=== PATIENT | male | born 1970 | race Caucasian/White ===

== ENCOUNTER 2017-05-14 09:23 | Day surgery (SDC) | payer OTHER ==
--- NOTE | 2017-05-13 17:23 | HISTORY AND PHYSICAL E ---
History and Physical NAME: JUAN F JOHNSON : 1970 AGE: 47Y ADMITTED: 05/14/2017 ROOM: CHIEF COMPLAINT/HISTORY: Diarrhea, changed bowel habits, abdominal pain, Crohn's. Diarrhea more frequent after eating, related to food intake, 3-5 times per day. He denied nighttime diarrhea. PAST SURGICAL HISTORY: 1. Appendectomy. 2. Rhinoplasty. 3. Right ankle. 4. surgery. 5. Epiglottis surgery. 6. Colonoscopy, 2006. MEDICATIONS: 1. Ambien. 2. Baby aspirin. SOCIAL HISTORY: Patient is . He smokes tobacco. He drinks at times. FAMILY HISTORY: Father is , history unknown. Mom is alive, has history of heart and gallbladder disease. He does have a maternal grandfather with colon malignancy. His uncle has rectal malignancy. REVIEW OF SYSTEMS: HEAD, EYES, EARS, NOSE, THROAT: Deviated septum, eye-glasses, ringing in the ears. RESPIRATORY: Sleep apnea. CPAP. CARDIAC: Negative. ENDOCRINE: Negative. GASTROINTESTINAL: Changed bowel habits, abdominal pain, and diarrhea. PSYCHIATRIC: PTSD. PHYSICAL EXAMINATION: GENERAL: Pleasant, alert, oriented, 48. VITAL SIGNS: Weight 220. Blood pressure 130/90, pulse 80, respirations 18, temp is 98. HEAD, EYES, EARS, NOSE, THROAT: Normal. NECK: Supple. CARDIOVASCULAR: Normal. LUNGS: Clear. ABDOMEN: Soft. NEUROLOGIC: Exam negative. CONCLUSION: 1. Changed bowel habits, diarrhea. 2. Abdominal pain. 3. IBS. PLAN: Colonoscopy. Admit 05/14. DICTATING PHYSICIAN: DANIEL BROWN M.D. [id number] [id number] PHY#: [id number] ID: [id number] JOB#: [id number] ACCT: [id number] cc:[facility], DANIEL BROWN M.D. >
[~2017-05-14 09:23] MED LIST: LIDOCAINE 2% JELLY 30 ML TUBE ONE; ONDANSETRON HCL INJ/PF 4 MG/2 ML SDV ONE
[2017-05-14] MEDS ORDERED: GLYCOPYRROLATE INJ 0.4 MG/2 ML VIAL ONE (09:24)
[2017-05-14] MEDS ORDERED: NALOXONE HCL INJ/PF 0.4 MG/1 ML SDV ONE (09:24)
[2017-05-14] MEDS ORDERED: FLUMAZENIL INJ 0.5 MG/5 ML VIAL IV ONE (09:24)
[2017-05-14] MEDS ORDERED: GLUCAGON,HUMAN RECOMB 1 MG INJ ONE (09:25)
[2017-05-14] MEDS ORDERED: EPINEPHRINE INJ 1 MG/10 ML DISP.SYRIN ONE (09:25)
[2017-05-14] MEDS: MIDAZOLAM 2 MG/2 ML INJ ONE ×3 (10:34→10:42)
[2017-05-14] MEDS: FENTANYL CITRATE INJ/PF 100 MCG/2 ML AMPUL ONE ×2 (10:36→10:40)
--- NOTE | 2017-05-14 11:16 | OPERATIVE REPORT E ---
Operative Report NAME: JUAN F JOHNSON : 1970 AGE: 47Y DATE OF SURGERY: ROOM: PREOPERATIVE DIAGNOSIS: The patient is a 47-year-old male with diarrhea. POSTOPERATIVE DIAGNOSIS: Diarrhea. OPERATION: Colonoscopy. SURGEON: DANIEL BROWN M.D. ANESTHESIA: Versed 4, fentanyl 100. TISSUE REMOVED OR ALTERED: Biopsy, right colon. Consider collagenous colitis, microscopic colitis. PROCEDURE: Rectal exam shows firm prostate, otherwise negative. Rectal mucosa normal. Sigmoid, descending colon normal. Transverse colon, normal. Ascending colon, normal. Cecum was coated with a large amount of liquid stool. With lavage flushing I was able to see the cecum. I did not see any gross abnormalities. Scope withdrawn from cecum after biopsy obtained. Right colon and cecum biopsy for collagenous colitis. Cecum, ascending colon essentially normal. Inadequate prep. Transverse colon normal; descending, sigmoid all the way to the rectum. CONCLUSION: Firm prostate. Awaiting lab testing. No evidence of polyps, no evidence of malignancy. Because the prep is inadequate, but I reached the cecum, the patient may need to have followup colonoscopy after 1 to 2 years with better prep. DICTATING PHYSICIAN: DANIEL BROWN M.D. [id number] [id number] PHY#: [id number] ID: [id number] JOB#: [id number] ACCT: [id number] cc:[facility], DANIEL BROWN M.D. >
[2017-05-14 12:04] VITALS: BP 124/73
[2017-05-14 12:11] LABS: ABSOLUTE BASOPHILS # (AUTO) 0.1 10^3/uL (0.0-0.2); ABSOLUTE EOSINOPHILS # (AUTO) 0.2 10^3/uL (0.0-0.6); ABSOLUTE LYMPHOCYTES (AUTO) 1.8 10^3/uL (0.5-4.7); ABSOLUTE MONOCYTES (AUTO) 1.2 10^3/uL (0.1-1.4); ABSOLUTE NEUT (AUTO) 8.4 10^3/uL (1.7-8.2); BASOPHILS % (AUTO) 0.5 % (0-2); EOSINOPHILS % (AUTO) 1.5 % (0-6); HEMATOCRIT 48.6 % (37.9-51.0); HEMOGLOBIN 16.2 g/dL (13.5-17.0); LYMPHOCYTES % (AUTO) 15.8 % (13-45); MEAN CORPUSCULAR HEMOGLOBIN 32.5 pg (27.0-33.4); MEAN CORPUSCULAR HGB CONC 33.4 g/dL (32.0-36.0); MEAN CORPUSCULAR VOLUME 97 fl (80-97); MONOCYTES % (AUTO) 10.4 % (3-13); RED CELL DISTRIBUTION WIDTH 13.4 % (11.5-14.0); SEGMENTED NEUTROPHILS % (AUTO) 71.8 % (42-78); WHITE BLOOD COUNT 11.7 10^3/uL (4.0-10.5)
[2017-05-14 12:29] LABS: ALANINE AMINOTRANSFERASE 83 U/L (21-72); ALBUMIN 4.7 g/dL (3.5-5.0); ALKALINE PHOSPHATASE 56 U/L (38-126); ANION GAP 15 (5-19); ASPARTATE AMINO TRANSFERASE 60 U/L (17-59); BILIRUBIN,DIRECT 0.5 mg/dL (0.0-0.4); BILIRUBIN,TOTAL 1.5 mg/dL (0.2-1.3); BLOOD UREA NITROGEN 15 mg/dL (7-20); CALCIUM 9.4 mg/dL (8.4-10.2); CARBON DIOXIDE 23 mmol/L (22-30); CHLORIDE 99 mmol/L (98-107); CREATININE RESULT 0.96 mg/dL (0.52-1.25); GLUCOSE 145 mg/dL (75-110); POTASSIUM 4.2 mmol/L (3.6-5.0); TOTAL PROTEIN 8.3 g/dL (6.3-8.2)
[2017-05-14 13:01] LABS: ERYTHROCYTE SEDIMENTATION RATE 18 mm/hr (0-15)
[2017-05-17 07:54] LABS: DEAMIDATED GLIADIN IGA AB 6 units (0-19); DEAMIDATED GLIADIN IGG AB 2 units (0-19); IMMUNOGLOBULIN A 2 303 mg/dL (90-386); T-TRANSGLUTAMINASE (TTG) IGG <2 U/mL (0-5)
--- NOTE | 2017-05-18 09:54 | DISCHARGE SUMMARY E ---
Discharge Summary NAME: JUAN F JOHNSON : 1970 AGE: 47Y ADMITTED: 05/14/2017 DISCHARGED: 05/14/2017 PROCEDURE: 1. Colonoscopy. 2. Biopsy. ANESTHESIA: Versed 4, fentanyl 100. HISTORY AND HOSPITAL COURSE: Patient is 47, presented with diarrhea. Today's colonoscopy shows no evidence of inflammatory bowel disease. No polyps. The cecum was visualized but the prep was inadequate. I did not see any mucosal disease or polyps or malignancy. The biopsy obtained, right colon: Consideration, microscopic colitis. Because of the inadequate prep, patient is a candidate for followup colonoscopy after 1 to 2 years with better prep. Meanwhile, we are going to do lab studies. DISCHARGE PLAN: Awaiting biopsy results. DICTATING PHYSICIAN: DANIEL BROWN M.D. 1265M [id number] PHY#: [id number] ID: [id number] JOB#: [id number] ACCT: [id number] cc:[facility], DANIEL BROWN M.D. >
--- NOTE | 2017-05-18 09:55 | DISCHARGE SUMMARY E ---
Discharge Summary NAME: JUAN F JOHNSON : 1970 AGE: 47Y ADMITTED: 05/14/2017 DISCHARGED: 05/14/2017 HISTORY AND HOSPITAL COURSE: Patient is a 47-year-old referred to us from [facility] for diarrhea and colon screening. Patient did have colonoscopy 2006. This is 10 year followup because of diarrhea. Patient allergic to Demerol. Patient does have history of hypertension, sleep apnea. Patient for colon screening. PHYSICAL EXAM: VITAL SIGNS: The patient's vitals are stable. Blood pressure 140/80. Temperature is 98. PROCEDURE: Underwent colonoscopy to the cecum. No polyps; no malignancy. FINAL DIAGNOSES: 1. DIARRHEA. 2. , PENDING BIOPSY. DISCHARGE PLAN: 1. Will obtain lab studies, check urine. Patient does have urinary symptoms. Will do urine culture, CBC. 2. I will do serology for celiac disease. 3. Patient to hold aspirin nonsteroidal. 4. Baseline CBC. 5. Awaiting biopsy. 6. Followup colonoscopy 1 to 2 years. DICTATING PHYSICIAN: DANIEL BROWN M.D. 1265M [id number] PHY#: [id number] ID: [id number] JOB#: [id number] ACCT: [id number] cc:[facility], DANIEL BROWN M.D. >
== END 2017-05-14 12:10 | disposition home or self-care (01) ==
LOC: END 09:23
PROVIDERS: ATTEND Specialist
PROC: 0DBF8ZX Excision of Right Large Intestine, Via Natural or Artificial Opening Endoscopic, Diagnostic (ICD-10-PCS; principal; 2017-05-14 10:00)
DX: R19.7 Diarrhea, unspecified (principal); R19.4 Change in bowel habit; K58.9 Irritable bowel syndrome, unspecified; R10.9 Unspecified abdominal pain; Z79.82 Long term (current) use of aspirin; Z79.899 Other long term (current) drug therapy; F17.210 Nicotine dependence, cigarettes, uncomplicated; G47.30 Sleep apnea, unspecified
CPT/HCPCS: 45380; 86256; 36415; 84153; 85025; 85652; 80053; 83520 ×5; 88305 ×2; J2250; J3010; J1610; J2405; J0171; J2310; J3490

== ENCOUNTER → 2019-12-15 | Outpatient (CLI) | payer OTHER ==
--- NOTE | 2019-12-15 17:13 | RADIOLOGY REPORT (SQ) ---
EXAM DESCRIPTION: U/S ABDOMEN LIMITED W/O DOP COMPLETED DATE/TIME: 12/15/2019 7:57 am REASON FOR STUDY: FATTY (CHANGE OF) LIVER, NEC (K76.0) K76.0 FATTY (CHANGE OF) LIVER, NOT ELSEWHERE CLASSIFIED COMPARISON: 01/30/2016 TECHNIQUE: Dynamic and static grayscale images acquired of the abdomen and recorded on PACS. Additio nal selected color Doppler and spectral images recorded. LIMITATIONS: None. FINDINGS: PANCREAS: No masses. Visualized pancreatic duct normal caliber. LIVER: There is severe hepatic steatosis with hyperechoic appearance throughout. Focal fatty sparing at the gallbladder fossa. No focal hepatic mass. LIVER VASCULATURE: Normal directional flow of the main portal vein and hepatic veins. GALLBLADDER: No stones. Normal wall thickness. No pericholecystic fluid. ULTRASOUND-DETECTED AUGUST'S SIGN: Negative. INTRAHEPATIC DUCTS AND COMMON DUCT: CBD and intrahepatic ducts normal caliber. No filling defects. INFERIOR VENA CAVA: Normal flow. AORTA: No aneurysm. RIGHT KIDNEY: Normal size. Normal echogenicity. No solid or suspicious masses. No hydronephrosis. No calcifications. PERITONEAL AND RIGHT PLEURAL SPACE: No ascites or effusions. OTHER: No other significant findings. IMPRESSION: Severe hepatic steatosis. TECHNICAL DOCUMENTATION: JOB ID: [id number] [id number]- All Rights Reserved Reading location - IP/workstation name: [email or web address]
== END ==
LOC: RAD 08:10
PROVIDERS: ATTEND Physician Assistant
DX: K76.0 Fatty (change of) liver, not elsewhere classified (principal)
CPT/HCPCS: 76705